=== PATIENT | female | born 1995 | race Caucasian/White ===

== ENCOUNTER 2018-08-18 20:05 | Emergency (ER) | payer SELFPAY ==
[~2018-08-18] VITALS: Ht 154.9 cm; Wt 44.6 kg
[~2018-08-18 20:05] MED LIST: BIRTH CONTROL PO
[2018-08-18 20:14] VITALS: BP 96/62
--- NOTE | 2018-08-18 20:19 | NUR ---
PT AMBULATORY TO BR THEN TO ER LOBBY W/ STEADY GAIT IN STABLE CONDITION.
--- NOTE | 2018-08-18 20:41 | NUR ---
PT PRESENTS TO ED WITH GENERALIZED BODY ACHES Addendum: 08/18/18 at 2149 by MED PT PRESENTS TO ED WITH GENERALIZED BODY ACHES. PT STATES CONCERNED ABOUT GENERAL JOY, STATES FEELING UNHEALTY WITHOUT CAUSE. WEIGH LOSS OVER 3 MONTHS. AMOUNT UNKNONW. CURRENT WEIGHT 98 LBS. PT REQUESTING MD EVALUATION AT THIS TIME. VSS. POSITOINED IN BED FOR COMFORT. CONTINUE TO MONITOR.
--- NOTE | 2018-08-18 20:42 | NUR ---
PT TAKEN TO BED 12
[2018-08-18 20:52] LABS: APPEARANCE,URINE CLEAR (CLEAR); BILIRUBIN,URINE NEGATIVE (NEGATIVE); BLOOD, URINE TRACE-I (NEGATIVE); COLOR,URINE YELLOW (YELLOW); LEUKOCYTE ESTERASE ,URINE NEGATIVE (NEGATIVE); NITRITE, URINE NEGATIVE (NEGATIVE); UGLUCOSE NEGATIVE (NEGATIVE)
[2018-08-18 20:55] LABS: RBC,URINE 3-10 (FEW) /HPF (0-5); WBC,URINE NONE SEEN /HPF (0-5)
[2018-08-18] MEDS ORDERED: KETOROLAC 30 MG/ML VIAL IM ONE (21:30)
[2018-08-18 21:57] LABS: BASOPHILS # (AUTO) 0.1 K/uL (0.00-0.22); BASOPHILS % (AUTO) 0.9 % (0.0-2.0); EOSINOPHILS # (AUTO) 0.1 K/uL (0-0.4); EOSINOPHILS % (AUTO) 1.3 % (0.0-4.0); HEMATOCRIT 36.9 % (36-48); HEMOGLOBIN 12.5 g/dL (12.0-16.0); LYMPHOCYTES # (AUTO) 2.7 K/uL (2.5-16.5); LYMPHOCYTES % (AUTO) 39.7 % (20.5-51.1); MEAN CORPUSCULAR HEMOGLOBIN 32 pg (27-31); MEAN CORPUSCULAR HGB CONC 34 g/dL (33-37); MEAN CORPUSCULAR VOLUME 95.4 fL (80-94); MONOCYTES # (AUTO) 0.5 K/uL (0.8-1.0); NEUTROPHILS # (AUTO) 3.5 K/uL (1.8-7.7); NEUTROPHILS % (AUTO) 51.1 % (42.2-75.2); PLATELET COUNT (AUTO) 164 K/uL (140-450); RED BLOOD CELL COUNT(AUTO) 3.86 MIL/uL (4.20-5.40); RED CELL DISTRIBUTION WIDTH 13.1 % (11.6-13.7); WHITE BLOOD COUNT (AUTO) 6.8 K/uL (4.8-10.8)
[2018-08-18 22:19] LABS: ANION GAP 8.1 (8-16); CARBON DIOXIDE 30.5 mmol/L (21-32); CREATININE 0.6 mg/dL (0.6-1.3); POTASSIUM 3.6 mmol/L (3.5-5.1)
[2018-08-18 22:22] LABS: BARBITURATE, URINE NEG. ng/ml (NEG <=200); BENZODIAZEPINE, URINE NEG. ng/mL (NEG <=200); CANNABINOID, URINE POS. ng/mL (NEG <=50); COCAINE, URINE NEG. ng/mL (NEG <=300); OPIATE, URINE NEG. ng/mL (NEG <=2000); PHENCYCLIDINE SCREEN,URINE NEG. ng/mL (NEG <=25)
[2018-08-18 22:34] LABS: FREE T4 (FREE THYROXINE) 0.89 ng/dL (0.76-1.46); THYROID STIMULATING HORMONE 2.96 uIU/mL (0.34-3.74)
[2018-08-18 23:07] VITALS: BP 96/62
== END 2018-08-18 23:05 | disposition home or self-care (01) ==
LOC: MED 20:05
DX: M54.9 Dorsalgia, unspecified (principal); R53.83 Other fatigue; R63.4 Abnormal weight loss; F41.9 Anxiety disorder, unspecified; F32.9 Major depressive disorder, single episode, unspecified; J45.909 Unspecified asthma, uncomplicated; F12.90 Cannabis use, unspecified, uncomplicated; F17.210 Nicotine dependence, cigarettes, uncomplicated
CPT/HCPCS: 36415; 71045; 80048; 80305; 81001; 81025; 84439; 84443; 85025; 96372; 99284; J1885; Q0092

== ENCOUNTER 2021-06-28 19:04 | Emergency (ER) | payer MEDICAID ==
[~2021-06-28] VITALS: Ht 154.9 cm; Wt 45.4 kg
[2021-06-28 19:05] VITALS: BP 122/70
--- NOTE | 2021-06-28 19:17 | NUR ---
RECEIVED PT IN BED 12 WITH C/O RIGHT THUMB PAIN AFTER SLAMMING IN CAR DOOR THIS MORNING AT 0830. ECHYMOSIS NOTED RIGHT THUMB NAIL. C/O PAIN 01/30.
[2021-06-28] MEDS ORDERED: IBUP-2213 PO (19:35)
[2021-06-28 20:05] VITALS: BP 122/70
--- NOTE | 2021-06-28 20:05 | NUR ---
Patient discharged with v/s stable. Written and verbal after care instructions given and explained. Patient alert, oriented and verbalized understanding of instructions. Ambulatory with steady gait. All questions addressed prior to discharge. ID band removed. Patient advised to follow up with PMD. Rx of MOTRIN given. Patient educated on indication of medication including possible reaction and side effects. Opportunity to ask questions provided and answered. RIGHT THUMB SPLINT IN PLACE
== END 2021-06-28 20:05 | disposition home or self-care (01) ==
LOC: MED 19:04
DX: S60.111A Contusion of right thumb with damage to nail, initial encounter (principal); J45.909 Unspecified asthma, uncomplicated; Z79.899 Other long term (current) drug therapy; W22.8XXA Striking against or struck by other objects, initial encounter; Y93.89 Activity, other specified; Y92.89 Other specified places as the place of occurrence of the external cause; Y99.8 Other external cause status
CPT/HCPCS: 29130; 73140; 99283; Q0092

== ENCOUNTER 2021-09-02 22:41 | Emergency (ER) | payer MEDICAID ==
[~2021-09-02] VITALS: Ht 154.9 cm; Wt 45.4 kg
[~2021-09-02 22:41] MED LIST changes: +IBUP-2213 PO
[2021-09-02 22:43] VITALS: BP 129/82
--- NOTE | 2021-09-02 22:43 | NUR ---
to bed ambulatory
[2021-09-02] MEDS ORDERED: KETOROLAC 30 MG/ML VIAL IVP ONE (23:00)
[2021-09-02] MEDS ORDERED: NACL 0.9% 1,000 ML IV ONE (23:00)
[2021-09-02] MEDS ORDERED: METOCLOPRAMIDE 10 MG/2 ML INJ VIAL IVP ONE (23:00)
[2021-09-02] MEDS ORDERED: diphenhydrAMINE 50 MG/ML VIAL IVP ONE (23:00)
[2021-09-02] MEDS ORDERED: ONDANSETRON 4 MG ODT PO ONE (23:05)
[2021-09-02] MEDS ORDERED: KETOROLAC 30 MG/ML VIAL IM ONE (23:05)
--- NOTE | 2021-09-02 23:39 | NUR ---
patient reports feeling "so much better" and pain of 2/10. given apple juice. ERMD made aware
[2021-09-02] MEDS ORDERED: NAPR-1704 PO (23:47)
[2021-09-02] MEDS ORDERED: ONDA-188 PO (23:47)
--- NOTE | 2021-09-03 00:07 | NUR ---
Patient discharged with v/s stable. Written and verbal after care instructions given and explained. Patient alert, oriented and verbalized understanding of instructions. Ambulatory with steady gait. All questions addressed prior to discharge. ID band removed. Patient advised to follow up with PMD. Rx of naproxen and zofran odt given. Excused work/school form Patient educated on indication of medication including possible reaction and side effects. Opportunity to ask questions provided and answered.
[2021-09-03 00:09] VITALS: BP 105/54
== END 2021-09-03 00:07 | disposition home or self-care (01) ==
LOC: MED 22:41
DX: R51.9 Headache, unspecified (principal); R68.83 Chills (without fever); R11.10 Vomiting, unspecified; J45.909 Unspecified asthma, uncomplicated; Z79.899 Other long term (current) drug therapy
CPT/HCPCS: 81025; 96372; 99283; J1885; Q0162